=== PATIENT | male | born 1990 | race African-American/Black ===

== ENCOUNTER 2018-11-18 02:30 | Emergency (ER) | payer OTHER ==
[2018-11-18] MEDS ORDERED: LIDOCAINE VISCOUS 2% 15 ML UDC MM STA (02:52)
--- NOTE | 2018-11-18 02:53 | ED Physician Documentation ---
History of Present Illness - Stated complaint Stated Complaint: LIP LAC - Chief complaint Chief Complaint: Laceration - History obtained from History obtained from: Patient - History of Present Illness Timing: Today - Additonal information Additional information: 28-year-old male was running racing his friends when he fell landing on his face and when he got up he noted that he had some blood on his shirt and then realized that he had a laceration of his left upper lip. Review of Systems Constitutional: denies: Fever, Chills Eyes: denies: Decreased vision Ears: denies: Ear pain, Drainage/discharge Nose: denies: Rhinorrhea / runny nose, Congestion Throat: denies: Sore throat Respiratory: denies: Cough GI: denies: Nausea, Vomiting PD PAST MEDICAL HISTORY - Past Medical History Past Medical History: No Cardiovascular: None Respiratory: None Neuro: None Endocrine/Autoimmune: None GI: None : None HEENT: None Psych: None Musculoskeletal: None Derm: None - Past Surgical History Past Surgical History: No - Present Medications Home Medications: Ambulatory Orders Medication Instructions Recorded Confirmed No Known Home Medications 11/18/18 11/18/18 - Allergies Allergies/Adverse Reactions: Allergies Allergy/AdvReac Type Severity Reaction Status Date / Time No Known Drug Allergies Allergy Verified 11/18/18 02:38 - Social History Does the pt smoke?: No Smoking Status: Never smoker Does the pt drink ETOH?: Yes Does the pt have substance abuse?: No - Immunizations Immunizations are current?: Yes - POLST Patient has POLST: No PD ED PE NORMAL - Vitals Vital signs reviewed: Yes (hypertensive mild ) - General General: Alert and oriented X 3, No acute distress, Well developed/nourished - HEENT HEENT: PERRL, EOMI, Other (There is a 2.5cm laceration to the left upper lip laterally that involves the vermilian border and is jagged and ends on the buccal mucosa about 1cm inside the mouth. ) - Neck Neck: Supple, no meningeal sign, No bony TTP - Respiratory Respiratory: No respiratory distress - Derm Derm: Normal color, Warm and dry, No rash - Extremities Extremities: No deformity, No edema - Neuro Neuro: Alert and oriented X 3, door repairer bus 2-12 intact, No motor deficit, No sensory deficit, Normal speech Eye Opening: Spontaneous Motor: Obeys Commands Verbal: Oriented GCS Score: 15 - Psych Psych: Normal mood, Normal affect Results - Vitals Vitals: Vital Signs - 24 hr 11/18/18 02:36 Temperature 36.7 C Heart Rate 80 Respiratory 17 Rate Blood Pressure 137/85 H O2 Saturation 100 Oxygen O2 Source Room air Procedures - Laceration (location) upper lip left Length in cm: 2.5 Wound type: Stellate, Flap, Into subcut fat, Clean Neurovascular status: Sensory intact, Motor intact, Vascular intact Anesthesia: Lidocaine 1%, With bicarb Wound Preparation: Hibiclens, Irrigated copiously NS, Wound explored, To the base Skin layer closure: Nylon, Interrupted, Size #-0 - enter number ([id number]) Other: Patient tolerated well, No complications, Neurovascular intact, Dressing applied, Tetanus UTD Complexity: Complex PD MEDICAL DECISION MAKING - ED course Complexity details: considered differential, d/w patient ED course: 28 y/o male with upper lip laceration is sutured. The flaps of the laceration came together well. Departure - Departure Disposition: 01 Home, Self Care Clinical Impression: Lip laceration Qualifiers: Encounter type: initial encounter Qualified Code(s): S01.511A - Laceration without foreign body of lip, initial encounter Condition: Stable Instructions: ED Laceration Facial Sutr Tape Follow-Up: MARINE DE LA GARZA [Primary Care Provider] - Comments: sutures should be removed in 5 days
[2018-11-18] MEDS ORDERED: BUFFERED LIDOCAINE 10 ML SYRINGE SUBQ STA (03:04)
[2018-11-18] MEDS ORDERED: BACITRACIN OINT TOP STA (03:30)
[2018-11-18] MEDS ORDERED: BACITRACIN OINT TOP ONE (03:33)
[2018-11-18 03:43] VITALS: BP 136/83
== END 2018-11-18 03:35 | disposition home or self-care (01) ==
LOC: ED 02:30
DX: S01.511A Laceration without foreign body of lip, initial encounter (principal); W22.8XXA Striking against or struck by other objects, initial encounter; Y93.02 Activity, running
CPT/HCPCS: 41250; 99282; 99283; A9270